=== PATIENT | male | born 2000 | race Caucasian/White ===

== ENCOUNTER 2022-02-23 09:08 | Emergency (ER) | payer SELFPAY ==
[2022-02-23] MEDS ORDERED: Ketorolac 60 MG/2 ML SDV IM ONE (10:10)
== END 2022-02-23 10:35 | disposition home or self-care (01) ==
LOC: MW.ED 09:08
DX: H66.92 Otitis media, unspecified, left ear (principal); Z79.899 Other long term (current) drug therapy
CPT/HCPCS: 96372; 99283; J1885